=== PATIENT | male | born 1970 | race Caucasian/White ===

== ENCOUNTER → 2017-02-13 | Outpatient (CLI) | payer BC ==
[2015-02-17 01:45] VITALS: BP 104/58
[~2017-02-13] MED LIST: CHOL100013 PO; CONTRAST GIVEN MC PRN; IOHEXOL 240 MG/ML 50ML VIAL. PO ONE; IOHEXOL 300 MG/ML 100ML VIAL. IV ONE; MULT-208 PO; OMEP20CA9 PO
--- NOTE | 2017-02-13 14:57 | KCIC ---
CT abdomen and pelvis with contrast Indication: . Abdominal pain. Epigastric pain for 5 months.. Technique: Intravenous and oral contrast Comparison:None available Exposure: One or more of the following individualized dose reduction techniques were utilized for this examination: 1. Automated exposure control 2. Adjustment of the mA and/or kV according to patient size 3. Use of iterative reconstruction technique. FINDINGS: Lower thorax: Lung bases are clear. Pneumoperitoneum:No gross pneumoperitoneum. Liver: Faint tiny low-density lesion in the right lobe of the liver only measures about 3 mm and is too small to characterize. No dominant liver lesion. Spleen: Unremarkable Pancreas: Unremarkable Kidneys:Unremarkable Adrenals:No evidence of mass. Gallbladder: No calcified stone Aorta: Abdominal aorta is nonaneurysmal Lymph nodes: No significant enlargement GI tract: No bowel obstruction. Mild stool throughout the colon. No evidence of acute pericolonic inflammation. Appendix:Visualized, appears within normal limits. Ascites: No gross ascites. Urinary bladder: Mild diffuse wall thickening. Minimal central prostate calcification. Bones: Spondylolysis at L5 on the left, assuming 5 lumbar type vertebral bodies. No significant spondylolisthesis. Small focal lucency at the left sacral ala measures 17 mm. IMPRESSION: 1. Mild uniform urinary bladder wall thickening. Nonspecific, considerations include acute or chronic cystitis, or chronic urinary bladder outlet obstruction. 2. Spondylolysis of L5. 3. Small osteolytic lesion of the left sacrum, uncertain significance. Depending on risk factors, consider nuclear medicine bone scan. Electronically signed by: Naseem Rodas MD (02/13/2017 2:54 PM)
== END | disposition home or self-care (01) ==
LOC: KCIC CT 13:21
PROVIDERS: ATTEND Internal Medicine Gastroenterology
DX: K76.89 Other specified diseases of liver (principal); N42.89 Other specified disorders of prostate; M47.896 Other spondylosis, lumbar region; M89.9 Disorder of bone, unspecified
CPT/HCPCS: 74177; Q9966; Q9967

== ENCOUNTER → 2017-07-20 | Outpatient (CLI) | payer BC ==
[2015-02-17 01:45] VITALS: BP 104/58
[~2017-07-20] MED LIST changes: -CONTRAST GIVEN MC PRN; -IOHEXOL 240 MG/ML 50ML VIAL. PO ONE; -IOHEXOL 300 MG/ML 100ML VIAL. IV ONE
--- NOTE | 2017-07-20 13:58 | RAD ---
Examination: Limited bone scan History: History of lytic lesion left sacrum Comparison: CT from 02/13/2017 Technique: 25 mCi of technetium 99m MDP was injected IV and limited images of the pelvis were performed in anterior and posterior projection. Findings: There is physiological radiotracer uptake identified in the urinary bladder. No definite evidence of focal increase uptake identified in the sacral region. Impression: 1. No definite evidence of focal increased uptake identified in the sacral region.
== END | disposition home or self-care (01) ==
LOC: NM 09:16
PROVIDERS: ATTEND Internal Medicine Gastroenterology
DX: M53.3 Sacrococcygeal disorders, not elsewhere classified (principal)
CPT/HCPCS: 78300; 96374

== ENCOUNTER → 2018-10-18 | Outpatient (CLI) | payer BC ==
[2015-02-17 01:45] VITALS: BP 104/58
[~2018-10-18] MED LIST changes: +CONTRAST GIVEN. MC PRN; +IOHEXOL 300 MG/ML 100ML VIAL. IV ONE; +OMEP20CA10 PO; -OMEP20CA9 PO
--- NOTE | 2018-10-18 14:40 | RAD ---
EXAM: CT pelvis with IV contrast DATE: 10/18/2018 12:25 PM COMPARISON: CT 02/13/2017 INDICATION: Lytic lesion seen on prior CT TECHNIQUE: CT of the pelvis was performed following the administration of IV contrast. Axial coronal and sagittal reformatted images were generated. PQRS compliance statement - One or more of the following individualized dose reduction techniques were utilized for this study: 1. Automated exposure control 2. Adjustment of the mA and/or kV according to patient size 3. Use of iterative reconstruction technique FINDINGS: Moderate colonic stool content is seen. No small or large bowel dilatation. No pelvic ascites. Visualized portions of the inferior liver and right kidney are unremarkable. Small fat-containing left inguinal hernia. Bones: A lucent lesion within the left sacrum measures 1.8 x 1.5 cm, previously 1.7 x 1.7 cm. Accounting for differences in scan plane, in general this lucent lesion has not changed when compared to 02/13/2017. This lesion measures fat density (approximately -70 Hounsfield units). A lateral pars defects are seen at L5 with associated degenerative changes. No spondylolisthesis of L5 on S1. IMPRESSION: 1. Left sacral lucent lesion is grossly stable measuring fat density. Given the lack of change when compared to 02/13/2017, a nonaggressive process is suspected. This may represent an intraosseous lipoma or hemangioma. Electronically signed by: Yang Chua MD (10/18/2018 2:37 PM) [facility]
== END | disposition home or self-care (01) ==
LOC: CT 11:38
PROVIDERS: ATTEND Internal Medicine Gastroenterology
DX: K40.90 Unilateral inguinal hernia, without obstruction or gangrene, not specified as recurrent (principal)
CPT/HCPCS: 74170; Q9967

== ENCOUNTER → 2018-10-25 | Outpatient (CLI) | payer BC ==
[2015-02-17 01:45] VITALS: BP 104/58
[~2018-10-25] MED LIST changes: -CONTRAST GIVEN. MC PRN; -IOHEXOL 300 MG/ML 100ML VIAL. IV ONE
--- NOTE | 2018-10-25 12:17 | RAD ---
Radionuclide Meckel scan, 10/25/2018: HISTORY: Right lower quadrant pain Imaging of the abdomen and pelvis was performed following IV injection of 10.3 mCi of technetium 99m pertechnetate. Normal gastric uptake is evident. No abnormal accumulation of activity is seen to suggest a Meckel's diverticulum. IMPRESSION: Negative Meckel's scan. Electronically signed by: Hector Aguilar MD (10/25/2018 12:15 PM) [facility]
== END | disposition home or self-care (01) ==
LOC: NM 08:10
PROVIDERS: ATTEND Internal Medicine Gastroenterology
DX: R10.31 Right lower quadrant pain (principal); R10.33 Periumbilical pain
CPT/HCPCS: 78290; 96374; A9512

== ENCOUNTER → 2018-11-18 | Outpatient (CLI) | payer BC ==
[2015-02-17 01:45] VITALS: BP 104/58
--- NOTE | 2018-11-18 11:43 | KCIC ---
Small bowel series HISTORY: Periumbilical pain. Fluoroscopy time: 2 minutes 10 seconds. Spot images obtained: 2 FINDINGS: The preliminary demonstrates moderate retained stool in the colon. Barium reaches the colon 20 minutes after ingestion. No significant small bowel distention. Small bowel fold pattern appears within normal limits. Manual fluoroscopy is performed in all 4 quadrants, demonstrating no evidence of tethered or deformed loop. Peristalsis was demonstrated throughout the small bowel to the colon. IMPRESSION: No abnormality is identified. Electronically signed by: Naseem Rodas MD (11/18/2018 11:40 AM) [facility]
== END | disposition home or self-care (01) ==
LOC: KCIC 07:35
PROVIDERS: ATTEND Internal Medicine Gastroenterology
DX: R10.33 Periumbilical pain (principal)
CPT/HCPCS: 74250

== ENCOUNTER 2020-06-23 18:56 | Emergency (ER) | payer BC ==
[~2020-06-23] VITALS: Ht 170.2 cm; Wt 68.1 kg
[~2020-06-23 18:56] MED LIST changes: -OMEP20CA10 PO; +OMEP20CA16 PO
[2020-06-23] MEDS ORDERED: LIDOCAINE/EPI/TETRACAINE TOPICAL GEL 3 ML. TP ONE (19:30)
[2020-06-23] MEDS ORDERED: ONDANSETRON PF 4 MG/2 ML VIAL. IV ONE (20:15)
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
--- NOTE | 2020-06-23 20:28 | RAD ---
EXAM: PA, oblique and lateral views of the right hand DATE: 06/23/2020 7:26 PM INDICATION: Reason: R thumb pain after fall / Spl. Instructions: / History: COMPARISON: No Prior FINDINGS: No evidence of acute fracture or dislocation. Joint spaces are preserved without significant degenerative/proliferative change. Right index finger and long finger soft tissue swelling. Deformity base of fifth metacarpal likely from old fracture. IMPRESSION: No acute fracture or dislocation. Electronically signed by: Yang Chua MD (06/23/2020 8:26 PM) [facility]
[2020-06-23 20:30] VITALS: BP 113/74
== END 2020-06-23 20:30 | disposition home or self-care (01) ==
LOC: ER 18:56
DX: S01.01XA Laceration without foreign body of scalp, initial encounter (principal); M79.644 Pain in right finger(s); W18.39XA Other fall on same level, initial encounter; Y93.89 Activity, other specified; Y92.89 Other specified places as the place of occurrence of the external cause; Y99.8 Other external cause status
CPT/HCPCS: 12004; 73130; 96374; 99283; J2405; 99284-25